=== PATIENT | female | born 1945 | race Caucasian/White ===

== ENCOUNTER → 2019-03-19 09:58 | Outpatient (CLI) | payer MEDICARE, OTHER | END | disposition home or self-care (01) | LOC: D.US 09:30 | PROVIDERS: ATTEND Family Medicine | DX: R94.5 Abnormal results of liver function studies (principal) ==

== ENCOUNTER 2019-05-15 16:23 | Observation (INO) | payer MEDICARE, OTHER ==
[~2019-05-15] VITALS: Ht 147.3 cm; Wt 56.6 kg
--- NOTE | ~2019-05-15 | HEMODYNAMI ---
PATIENT:AMENA ALDRIDGE MEDICAL RECORD: [id number] : 41 LOCATION:[facility] D.2123 ADMISSION DATE: 05/15/19 Generatedon:05/17/201912:39 Patient name: AMENA ALDRIDGE Patient #: [id number] SSN: D OB: 1945 Date of study: 05/17/2019 Page: Of Hemodynamic Procedure Report Patient Data Patient Demographics Procedure consent was obtained First Name: AMENA Gender: Female Last Name: OLY : 1945 Middle Initial: JAY Age: 74 year(s) Patient #: [id number] Race: Unknown Additional ID: [id number] Contact details [address]: [address] [place] [address] State: [place] City: [place] Zip code: [address] Past Medical History Allergies Allergen Reaction Date Comments Reported Other allergy 05/17/2019 SULFA, CIPRO, DOXYCYCLINE, MACROBID Admission Admission Data Admission Date: 05/15/2019 Admission Time: 18:16 Room #: D.2123 Lab Results Lab Result Date: 05/17/2019 Lab Result Time: 0:00 Biochemistry Name Units Result Min Max BUN mg/dl 27 --(----)-* 7 18 Creatinine mg/dl 1 --(--*-)-- 0.6 1.3 eGFR ml/min 57 *-(----)-- 90 120 NONAFRICAN CBC Name Units Result Min Max Hematocrit % 36.3 *-(----)-- 42 54 Hemoglobin g/dl 12 *-(----)-- 13.5 17.5 Procedure Procedure Types Cath Procedure Diagnostic Procedure LHC LHC w/Coronaries Sedation Charges Moderate Sedation up to 15 minutes Procedure Description Procedure Date Procedure Date: 05/17/2019 Procedure Start Time: 12:21 Procedure End Time: 12:37 Procedure Staff Name Function Jose French MD Performing Physician Jelly Mcdaniel RT Monitor Rafael Smith RT Scrub Sourav Hilton RN Nurse Huey Zhou RN Museum Technician Procedure Data Cath Procedure Fluoroscopy Diagnostic fluoroscopy Total fluoroscopy Time: 1.4 time: 1.4 min min Diagnostic fluoroscopy Total fluoroscopy dose: 326 dose: 326 mGy mGy Contrast Material Contrast Material Type Amount (ml) Isovue 300 48 Entry Location Entry Primary Successful Side Size Upsize Upsize Entry Closure Succes sful Closure Location (Fr) 1 (Fr) 2 (Fr) Remarks Device Remarks Femoral Right 5 Fr Exoseal artery Estimated blood loss: 10 ml Diagnostic catheters Device Type Used For End Catheter Placement MULTIPACK JL 4.0 5Fr Procedure catheter MULTIPACK 3DRC 5Fr Procedure catheter MULTIPACK Pigtail 5 Fr Procedure catheter Procedure Complications No complications Procedure Medications Medication Administration Route Dosage Oxygen etCO2 Nasal cannula 2 l/min Lidocaine 2% added to field 20 Heparin Flush Bag added to field 2 bags (1000units/500ml NS) 0.9% NaCl I.V. 100 ml/hr Versed I.V. 1 mg Fentanyl I.V. 50 mcg 0.9% NaCl I.V. bolus 250 ml Versed I.V. 1 mg Fentanyl I.V. 50 mcg 0.9% NaCl I.V. bolus 250 ml Hemodynamics Rest HGB: 12 (g/dl) Heart Rate: 67 (bpm) Pressure Samples Time Site Value (mmHg) Purpose Heart Use Rate(bpm) 12:29 LV 61/6,12 Snapshot 54 12:30 AO 61/33(42) Pullback 55 12:30 LV 52/-9,2 Pullback 55 Gradients Valve Time Site 1 Site 2 Mean SEP/DFP Peak To Heart Use (mmHg) (sec/min) Peak Rate (mmHg) (bpm) Aortic 12:30 LV AO 0 8 0 55 52/-9,2 61/33(42) Calculations Valve P-P Mean Valve Index Valve Source Name Gradient Area Flow (cm2) Aortic 0 0 0 0 Snapshots Pre Cath Intra NCS Post Cath Vital Signs Time Heart Resp SPO2 etCO2 NIBP (mmHg) Rhythm Pain Sedation Rate (ipm) (%) (mmHg) Status Level (bpm) 12:06:50 67 18 100 31.2 169/76(127) NSR 0 (11) 10(A) , No pain 12:11:12 61 20 100 32.7 125/68(98) NSR 0 (11) 10(A) , No pain 12:15:26 55 16 98 0 77/45(61) NSR 0 (11) 10(A) , No pain 12:22:17 51 16 95 15.6 79/47(52) NSR 0 (11) 9(A) , No pain 12:26:17 51 15 96 31.3 72/38(59) NSR 0 (11) 9(A) , No pain 12:30:19 61 14 96 20.1 74/32(46) NSR 0 (11) 9(A) , No pain 12:34:20 54 8 96 15.6 73/34(56) NSR 0 (11) 9(A) , No pain 12:36:21 56 19 97 26 75/36(65) NSR 0 (11) 10(A) , No pain Medications Time Medication Route Dose Verified Delivered Reason Notes Eff ectiveness by by 11:55:23 Oxygen etCO2 2 Jose Buffie used for Nasal l/min Manolo Hilton RN procedure cannula 11:55:30 Lidocaine 2% added 20ml Jose Jose for local to vial Manolo French MD anesthetic field 11:55:37 Heparin Flush added 2 Jose Jose used for Bag to bags Manolo French MD procedure (1000units/500ml field NS) 11:55:48 0.9% NaCl I.V. 100 Jose Buffie Per ml/hr Manolo Hilton RN physician 12:11:49 Versed I.V. 1 mg Jose Buffie for Manolo Hilton RN sedation 12:11:55 Fentanyl I.V. 50 Jose Buffie for mcg Manolo Hilton RN sedation 12:14:08 Versed I.V. 1 mg Jose Buffie for Manolo Hilton RN sedation 12:14:12 Fentanyl I.V. 50 Jose Buffie for mcg Manolo Hilton RN sedation 12:21:40 0.9% NaCl I.V. 250 Jose Buffie Per bolus ml Manolo Hilton RN physician 12:35:22 0.9% NaCl I.V. 250 Jose Buffie Per bolus ml Manolo Hilton RN physician Procedure Log Time Note 11:46:45 Signed procedure consent form obtained from patient. 11:46:47 Diagnostic Cath status Urgent 11:46:48 Time tracking: Regular hours (M-F 7:00 - 5:00) 11:46:52 Plan of Care:Hemodynamics will remain stable., Cardiac rhythm will remain stable., Comfort level will be maintained., Respiratory function will remain adequate., Patient/ family verbilizes understanding of procedure., Procedure tolerated without complication., Recovers from procedure without complications.. 11:46:54 Huey Zhou RN sent for patient. Start room use. 11:49:04 Lab Result : BUN 27 mg/dl 11:49:04 Lab Result : eGFR NONAFRICAN 57 ml/min 11:49:04 Lab Result : Creatinine 1 mg/dl 11:49:04 Lab Result : Hemoglobin 12 g/dl 11:49:04 Lab Result : Hematocrit 36.3 % 11:55:23 Oxygen 2 l/min etCO2 Nasal cannula was administered by Sourav Hilton RN; used for procedure; 11:55:30 Lidocaine 2% 20ml vial added to field was administered by Jose French MD; for local anesthetic; 11:55:37 Heparin Flush Bag (1000units/500ml NS) 2 bags added to field was administered by Jose French MD; used for procedure; 11:55:48 0.9% NaCl 100 ml/hr I.V. was administered by Sourav Hilton RN; Per physician; 12:05:35 Vital chart was started 12:05:43 Patient received from JackBe II to CCL 1 Alert and oriented. Tansferred to table in Supine position. 12:05:44 Warm blankets applied, and carol hugger turned on for patient comfort. 12:05:45 Correct patient and procedure confirmed by team. 12:05:45 ECG and BP/O2 sat monitors applied to patient. 12:05:47 Baseline sample Acquired. 12:05:51 Rhythm: sinus rhythm 12:05:52 Full Disclosure recording started 12:05:53 Pre-procedure instructions explained to patient. 12:05:53 Pre-op teaching completed and patient verbalized understanding. 12:05:55 Family unavailable. 12:05:56 Patient NPO since Midnight. 12:06:29 Patient allergic to Other allergySULFA, CIPRO, DOXYCYCLINE, MACROBID 12:06:54 Is patient on blood thinner?No 12:06:55 Patient diabetic? No. 12:06:59 Previous problem with sedation/anesthesia? No ? 12:07:04 Snore? Yes 12:07:05 Sleep apnea? No 12:07:07 Deviated septum? No 12:07:07 Opens mouth fully? Yes 12:07:11 Sticks out tongue? Yes 12:07:12 Airway obstruction? No ? 12:07:14 Dentures? No ? 12:07:17 Pre procedure: right dorsailis pedis pulse 3+ Increased pulse; moderate pressure to obliterate 12:07:19 Patient pain scale 0/10 ?. 12:07:23 IV patent on arrival in right hand with 0.9% NaCl at [facility]. 12:07:26 Lab results completed and on chart. 12:07:29 Right Radial & Right Groin area was prepped with chlora-prep and draped in sterile fashion 12:07:29 Alarms reviewed by R. N. 12:07:30 Sharps counted by scrub and verified by R.N. 12:07:34 Use device set Femoral Dx 12:07:35 ACIST Syringe (30491) opened to sterile field. 12:07:35 Bag Decanter (2002S) opened to sterile field. 12:07:36 ACIST Hand Control (59798) opened to sterile field. 12:07:36 ACIST Manifold (63293) opened to sterile field. 12:07:37 Tegaderm 4 x 4 (1626W) opened to sterile field. 12:07:38 Medline Cath Pack ([id number]) opened to sterile field. 12:07:40 DIAGNOSTIC Multipack 5Fr catheter set (SV3320) opened to sterile field. 12:08:07 SHEATH 5FR Seneca (FCH641) opened to sterile field. 12:08:08 EMERALD Guide Wire (637-171) opened to sterile field. 12:09:58 GOING GROIN DUE TO IV IN RIGHT WRIST AND PATIENT SIZE PER DR. FRENCH 12:10:16 --------ALL STOP TIME OUT------ 12:10:16 Final Timeout: patient, procedure, and site verified with staff and physician. All members of the team are in agreement. 12:10:18 Right groin site verified by team. 12:10:21 Fire Safety Assessment: A--An alcohol-based skin anteseptic being used preoperatively., C--Open oxygen or nitrous oxide is being used., D--An ESU, laser, or fiber-optic light is being used. 12::24 Physical assessment completed. ASA score P 2 - A patient with mild systemic disease as per Jose French MD. 12::28 3a) 45-59 Moderately reduced kidney function. 12:10:31 Maximum allowable contrast does (3.7 X eGFR X 0.75)158 ml. 12::34 Sedation plan: IV Moderate Sedation Medication:Versed, Fentanyl 12:11:49 Versed 1 mg I.V. was administered by Sourav Hilton RN; for sedation; 12::55 Fentanyl 50 mcg I.V. was administered by Sourav Hilton RN; for sedation; 12:14:08 Versed 1 mg I.V. was administered by Soruav Hilton RN; for sedation; 12:14:12 Fentanyl 50 mcg I.V. was administered by Sourav Hilton RN; for sedation; 12:16:39 Zero performed for pressure channel P1 12::24 Procedure started. 12:21:37 Local anesthetic to right femoral artery with Lidocaine 2% by Jose French MD.INITIAL ACCESS ONLY 12:21:40 0.9% NaCl 250 ml I.V. bolus was administered by Sourav Hilton RN; Per physician; 12::55 A 5 Fr sheath was inserted into the Right Femoral artery 12:24:30 A MULTIPACK JL 4.0 5Fr catheter was advanced over the wire and used for Procedure. 12::34 LCA angiography performed. 12:26:36 Catheter exchanged over wire. 12:27:12 A MULTIPACK 3DRC 5Fr catheter was advanced over the wire and used for Procedure. 12::55 RCA angiography performed. 12:28:09 Catheter exchanged over wire. 12::27 A MULTIPACK Pigtail 5 Fr catheter was advanced over the wire and used for Procedure. 12:28:59 LV gram done using ZARATE 12:29:04 Injector settings: Ml/sec: 10, Volume: 20, 12:29:51 LV hemodynamics recorded. 12:30:33 EF : 60 % 12:31:20 Catheter removed. 12:31:26 EXOSEAL 5Fr (EX500) opened to sterile field. 12:32:26 Sheath removed intact; hemostasis achieved with Exoseal to the Right Femoral artery. 12:32:58 Procedure ended.(Physican Out) 12:33:09 Fluoroscopy time 01.40 minutes. 12:33:13 Fluoroscopy dose: 326 mGy 12:33:13 Flurop Dose total: 326 12:33:18 Contrast amount:Isovue 300 48ml. 12:33:19 Sharps counted by scrub and verified by R.N. 12:33:22 Post-op/insertion site Right Femoral artery dressed using a 4 x 4 and Tegaderm. 12:34:01 Post-procedure physical assessment completed. ASA score P 2 - A patient with mild systemic disease as per Jose French MD. 12:34:07 Post procedure rhythm: sinus bradycardia 12:34:10 Estimated blood loss: 10 ml 12:34:11 Post procedure instruction explained to patient.Patient verbalizes understanding. 12:34:12 Patient needs reinforcement of post procedure teaching. 12:34:28 Procedure type changed to Cath procedure, Diagnostic procedure, LHC, LHC w/Coronaries, Sedation Charges, Moderate Sedation up to 15 minutes 12:34:42 Procedure and supply charges have been captured, reviewed, submitted and are correct. 12:34:44 Procedure Complication : No complications 12:34:46 Vital chart was stopped 12:34:46 See physician's report for complete and final results. 12:34:54 Report given to Pre/Post Procedure Room. 12:34:59 Patient transfered to Pre/Post Procedure Room with Bed. 12:35:22 0.9% NaCl 250 ml I.V. bolus was administered by Sourav Hilton RN; Per physician; 12:37:48 Procedure ended. 12:37:48 Full Disclosure recording stopped 12:38:00 End room use (Document Last) Device Usage Item Name Manufacture Quantity Catalog Hospital Part Current Minimal L ot# / Number Charge Number Stock Stock Serial# Code ACIST Acist 1 64327 179095 775039 587459 20 Syringe Medical (64453) Systems Inc Bag Microtek 1 658404 38107 541944 5 Decanter Medical Inc. () ACIST Hand Acist 1 37263 049012 866044 134459 5 Control Medical (86063) Systems Inc ACIST Acist 1 76172 536102 243602 055863 5 Manifold Medical (48360) Systems Inc Tegaderm 4 3M 1 1626W 547344 396987 177559 5 x 4 (1626W) Medline Medline 1 [id number] 966440 88824 486341 5 Cath Pack ([id number]) DIAGNOSTIC Cardinal 1 AI5088 204441 29742 661161 30 Multipack Health 5Fr catheter set (XB4274) SHEATH 5FR Terumo 1 FUX636 073908 535805 612629 5 Seneca (IFQ197) EMERALD Cardinal 1 435-596 858475 953905 948066 5 Guide Wire Health (947-392) MULTIPACK Cardinal 1 849199 5 JL 4.0 5Fr Health catheter MULTIPACK Cardinal 1 437607 5 3DRC 5Fr Health catheter MULTIPACK Cardinal 1 489208 5 Pigtail 5 Health Fr catheter EXOSEAL 5Fr Cardinal 1 EX500 704168 328355 963124 10 (EX500) Health Signature Audit [place] Stage Time Signature Unsigned Intra-Procedure 05/17/2019 Jelly Mcdaniel 12:39:10 PM RT(R) Signatures Performing Physician : Signature : Jose French MD Date : Time : Monitor : Jelly Mcdaniel Signature : RT Date : Time : Nurse : Sourav Hilton RN Signature : Date : Time : [facility] [address] [place], [place] [address]
[2019-05-15] MEDS ORDERED: SYNTHROID150 MCG PO (16:29)
[2019-05-15] MEDS ORDERED: LIPITOR40 MG PO (16:30)
[2019-05-15] MEDS ORDERED: COZAAR50 MG PO (16:30)
[2019-05-15] MEDS ORDERED: OMEPRAZOLE40 MG PO (16:30)
[2019-05-15] MEDS ORDERED: MOBIC7.5 MG PO (16:30)
[2019-05-15] MEDS ORDERED: ZOLOFT50 MG PO (16:31)
[2019-05-15 17:18] LABS: BASOPHILS 0.3 % (0-2); EOSINOPHILS 3.9 % (0-7); HEMATOCRIT 35.7 % (36.0-48.0); HEMOGLOBIN 11.9 g/dL (12-16); IMMATURE GRANULOCYTES 0.2 % (0-5); LYMPHOCYTES 17.4 % (15-50); MCH 28.3 pg (26.0-34.0); MCHC 33.3 g/dL (31.0-37.0); MCV 84.8 fL (80.0-100.0); MEAN PLATELET VOLUME 10.1 fL (7.4-10.4); MONOCYTES 9.3 % (2-11); NEUTROPHILS 68.9 % (40-80); PLATELET COUNT 196 10x3/uL (130-400); RBC 4.21 10x6/uL (4.00-5.40); RDW 13.7 % (11.5-14.5); WBC 9.4 10x3/uL (4.8-10.8)
[2019-05-15 17:27] LABS: APTT 36.5 SECONDS (22.8-39.4); INR 1.05 (0.85-1.17); PROTIME 13.2 SECONDS (11.6-15.0)
[2019-05-15 17:35] LABS: ALBUMIN 3.7 g/dL (3.4-5.0); ALKALINE PHOSPHATASE 136 U/L (46-116); ALT (SGPT) 49 U/L (10-68); BILIRUBIN - TOTAL 0.47 mg/dL (0.2-1.3); CALC OSMOLALITY 265 mosm/kg (275-300); CALCIUM 8.5 mg/dL (8.5-10.1); CARBON DIOXIDE 28.4 mmol/L (21.0-32.0); CHLORIDE - SERUM 96 mmol/L (98-107); CREATININE - SERUM 0.9 mg/dL (0.6-1.3); GLUCOSE 97 mg/dL (74-106); POTASSIUM - SERUM 4.9 mmol/L (3.5-5.1); PROTEIN - SERUM 6.6 g/dL (6.4-8.2); SODIUM 130 mmol/L (136-145); UREA NITROGEN 26 mg/dL (7-18); eGFR NON AFRICAN AMERICAN 64 mL/min (90-120)
[2019-05-15 17:46] LABS: CREATINE KINASE 113 UL (21-215); MAGNESIUM - SERUM 1.8 mg/dL (1.8-2.4); THYROID STIMULATING HORMONE 0.05 uIU/mL (0.36-3.74); TROPONIN-I 0.019 ng/mL (0.000-0.060)
--- NOTE | 2019-05-15 18:34 | NUR ---
CALLED REPORT TO LESA CHENG, UNABLE TO TRANSPORT PT ROOM IS NOT CLEAN AT THIS TIME.
--- NOTE | 2019-05-15 19:10 | NUR ---
BEDSIDE REPORT FROM MERY CHENG. PT WAITING ON INPATIENT ROOM TO BE CLEAN. PT OK WITH POC.
--- NOTE | 2019-05-15 19:59 | NUR ---
PT ARRIVED VIA W/C FROM ER. NO DISTRESS NOTED.
[2019-05-15 20:10] VITALS: BP 144/76; Ht 147.3 cm; Wt 56.6 kg
--- NOTE | 2019-05-15 20:51 | NUR ---
ADMISSION ASSESSMENT, HISTORY AND HOME MED LIST COMPLETED. PT DENIES ANY DISCOMFORT. VSS. SR PER CM HR 74. IV TO R WRIST SL. ALERT AND ORIENTED TO PERSON, PLACE AND TIME. USES CANE TO AMBULAT. RATIONALE FOR FALL PRECAUTIONS EXPLAINED TO PT. STATED UNDERSTANDING. SR UP X2, CALL LIGHT WIHTIN REACH AND BED ALARM ON.
--- NOTE | 2019-05-15 23:27 | NUR ---
PM MED GIVEN. EXPLAINED RATIONALE FOR NPO AFTER MIDNIHGT. PT STATED UNDERSTANDING. PT CURRENTLY RESTING WITH EYES CLOSED. RESP EVEN AND REGULAR. SR UP X2, CALL LIGHT WITHIN REACH AND BED ALARM ON.
[2019-05-16] VITALS: BP 105/47
--- NOTE | 2019-05-16 00:09 | NUR ---
ASSISTED PT TO BR. VOIDED MODERATE AMOUNT OF URINE. ASSISTED BACK TO BED. SR UP X2, CALL LIGHT WITHIN REACH.
--- NOTE | 2019-05-16 02:22 | NUR ---
PT RESTING WITH EYES CLOSED. RESP EVEN AND REGULAR. SR UP X2, CALL LIGHT WITHIN REACH AND BED ALARM ON.
[2019-05-16 04:00] VITALS: BP 140/67
--- NOTE | 2019-05-16 04:46 | NUR ---
PT RESTING WITH EYES CLOSED. RESP EVEN AND REGULAR. SR UP X2, CALL LIGHT WITHIN REACH AND BED ALARM ON.
--- NOTE | 2019-05-16 05:58 | NUR ---
VSS THROUGHOUT NIGHT. SR PER CM. PT DENIED ANY DISCOMFORT. NEEDS MET; WILL CONTINUE TO MONITOR.
--- NOTE | 2019-05-16 07:57 | NUR ---
AWAKE AND ALERT. DENIES ANY PAIN OR DISCOFORT. TELEMERTY SHOWS SR 66. O2 AT 2 L/M PRN. RIGHT WRIST SL SR UP WITH CALL LIGHT IN REACH. WILL MONITOR
[2019-05-16 08:00] LABS: BASOPHILS 0.3 % (0-2); EOSINOPHILS 8.2 % (0-7); HEMATOCRIT 36.3 % (36.0-48.0); IMMATURE GRANULOCYTES 0.2 % (0-5); LYMPHOCYTES 21.7 % (15-50); MCH 28.2 pg (26.0-34.0); MCHC 33.1 g/dL (31.0-37.0); MCV 85.2 fL (80.0-100.0); MEAN PLATELET VOLUME 10.2 fL (7.4-10.4); MONOCYTES 9.4 % (2-11); NEUTROPHILS 60.2 % (40-80); PLATELET COUNT 204 10x3/uL (130-400); RBC 4.26 10x6/uL (4.00-5.40); RDW 13.7 % (11.5-14.5); WBC 8.7 10x3/uL (4.8-10.8)
[2019-05-16 08:15] LABS: ANION GAP 10.1 mmol/L (8-16); CALCIUM 8.4 mg/dL (8.5-10.1); CARBON DIOXIDE 28.6 mmol/L (21.0-32.0); POTASSIUM - SERUM 4.7 mmol/L (3.5-5.1)
[2019-05-16 09:40] VITALS: BP 120/67
--- NOTE | 2019-05-16 15:35 | NUR ---
I have reviewed this patient and I concur with the Shift Assessment completed by the Licensed Practical Nurse today this shift.
[2019-05-16 17:00] VITALS: BP 157/82
[2019-05-16 20:00] VITALS: BP 113/59
--- NOTE | 2019-05-16 20:06 | NUR ---
INITAIL ROUNDS COMPLETED AT 1910 HRS. PT DENIED ANY DISCOMFRT. PT UP IN SHOWER AT 1925 HRS. BED LINENS CHANGED. SR UP X2, CALL LIGHT WITHIN REACH AND BED ALARM ON.
--- NOTE | 2019-05-16 20:12 | NUR ---
ASSESSMENT COMPLETED AT 1945 HRS. VSS. SR PER CM HR 64. ALERT AND ORIENTD TO PERSON, PLACE AND TIME. CABRERA. IV TO R WRIST SL. LUNGS CTA. PT USES CANE TO AMBULATE. DENIES ANY DISCOMFRT. SR UP X2,CALL LIGHT WITHIN REACH AND BED ALARM ON.
--- NOTE | 2019-05-16 22:49 | NUR ---
PT RESTING WITH EYES CLOSED. RESP EVEN AND REGULAR. SR UP X2, CALL LIGHT WITHIN REACH.
[2019-05-17] VITALS: BP 126/69
--- NOTE | 2019-05-17 00:08 | NUR ---
PT RESTING WITH EYES CLOSED. RESP EVEN AND REGULAR. SR UP X2,CALL LIGHT WITHIN REACH.
--- NOTE | 2019-05-17 01:54 | NUR ---
PT RESTING WITH EYES CLOSED. RESP EVEN AND REGULAR. SR UP X2, CALL LIGHT WITHIN REACH.
[2019-05-17 04:00] VITALS: BP 118/66
--- NOTE | 2019-05-17 04:12 | NUR ---
ASSISTED PT TO BR. VOIDED MODERATE AMOUNT OF URINE. ASSISTED BACK TO BED. SR UP X2, CALL LIGHT WITHIN REACH.
--- NOTE | 2019-05-17 05:35 | NUR ---
VSS THROUGHOUT NIGHT. PT DENIED ANY DISCOMFORT. FOR AM [facility] THIS AM. NEEDS MET; WILL CONTINUE TO MONITOR.
--- NOTE | 2019-05-17 07:27 | NUR ---
REPORT RECEIVED. WILL CONTINUE WITH POC. PT CURRENTLY LYING SEMI FOWLERS. CALL LIGHT W/I REACH. PT IS AAO AND UP WITH ASSIST. RR EVEN AND UNLABORED ON RA. L.WRIST PIV IS SALINE LOCKED. NPO FOR HEART CATH. PT DENIES ANY NEEDS. NO S/S OF DISTRESS NOTED. WILL CTM.
[2019-05-17 09:12] VITALS: BP 134/53
--- NOTE | 2019-05-17 10:20 | NUR ---
I have reviewed this patient and I concur with the Shift Assessment completed by the Licensed Practical Nurse today this shift.
--- NOTE | 2019-05-17 13:16 | NUR ---
PT ALERT, DENIES ANY C/O. DRESSING CDI, PEDAL PULSES PALPABLE. HOB IS FLAT. HAVE CALLED REJI PER PT REQUEST FOR A RIDE HOME FOR PT. REJI STATES SHE WILL COME RIGHT OVER TO HOSPITAL. CALL LIGHT IN REACH, PT DENIES NEEDS AT THIS TIME.
--- NOTE | 2019-05-17 13:37 | NUR ---
PT ALERT, DENIES ANY C/O PAIN OR NAUSEA. DRESSING IS CDI TO RIGHT GROIN, AREA IS SOFT AND NONTENDER. PEDAL PULSES PALPABLE. VSS. HOB IS FLAT.
--- NOTE | 2019-05-17 14:08 | NUR ---
DRESSING CDI TO RIGHT GROIN, AREA IS SOFT AND NONTENDER. PEDAL PULSES PALPABLE. PT IS ALERT AND DENIES ANY C/O. HOB ELEVATED 30 DEGREES. YASMIN SIPS OF PO FLUIDS.
--- NOTE | 2019-05-17 14:21 | NUR ---
HOB IS FULLY ELEVATED. DRESSING REMAINS CDI. PT IS ALERT AND DENIES ANY C/O PAIN OR NAUSEA. NSR, DENIES ANY CHEST PAIN. VSS. SANDWICH AND PO FLUIDS AT BEDSIDE.
--- NOTE | 2019-05-17 14:53 | NUR ---
PT HAS YASMIN SANDWICH AND PO FLUIDS WITH NO C/O. DRESSING REMAINS CDI TO RIGHT GROIN, PEDAL PULSES PALPABLE. IV DC'D WITH CATH INTACT AND ASSISTED PT WITH DRESSING FOR DC TO HOME. DC INSTRUCTIONS REVIEWED WITH PT WHO VERBALIZES UNDERSTANDING. PT SITTING UP IN WHEELCHAIR WAITING FOR RIDE.
--- NOTE | 2019-05-17 15:20 | NUR ---
PT HAS BEEN ASSISTED TO THE BATHROOM AND HAS VOIDED QS. PT IS ALERT AND DENIES ANY C/O. PT ESCORTED TO PRIVATE AUTO VIA WC BY NURSE WITH FRIEND DRIVING HER HOME. PT HAS ALL PERSONAL BELONGINGS AND DC INSTRUCTIONS AT TIME OF DISCHARGE.
== END 2019-05-17 15:20 | disposition home or self-care (01) ==
LOC: D.ER 16:23 → D.M2 18:16 → OBSVTIME 18:16 → D.CLR 05-17 13:42
PROVIDERS: Emergency Medicine; ADMIT Internal Medicine Cardiovascular Disease; ATTEND Internal Medicine Cardiovascular Disease
DX: I25.110 Atherosclerotic heart disease of native coronary artery with unstable angina pectoris (principal); I10 Essential (primary) hypertension